=== PATIENT | female | born 1970 | race Caucasian/White ===

== ENCOUNTER 2018-07-05 14:00 | Outpatient (CLI) | payer BC, OTHER ==
[~2018-07-05] VITALS: Ht 162.6 cm; Wt 59.0 kg
[~2018-07-05 14:00] MED LIST: ALPR1TAB2 PO; AMIT10TA6 PO; AMPH20TA2 PO; ESZO2TAB4 PO; HYDR1TAB86 PO; HYOS0.1216 PO; PHEN200T27 PO
[2018-07-05] MEDS ORDERED: PROG100C6 PO (16:33)
[2018-07-05] MEDS ORDERED: domperidone PO (16:33)
[2018-07-05] MEDS ORDERED: ALPR1TAB7 PO (16:33)
[2018-07-05] MEDS ORDERED: AMPH20CA5 PO (16:33)
[2018-07-05] MEDS ORDERED: PROM12.59 PO (16:33)
== END 2018-07-05 15:30 | disposition home or self-care (01) ==
LOC: PREOP 14:00
PROVIDERS: ATTEND Urology
DX: Z01.818 Encounter for other preprocedural examination (principal)

== ENCOUNTER 2018-07-09 10:42 | Day surgery (SDC) | payer BC, OTHER ==
[~2018-07-09] VITALS: Ht 162.6 cm; Wt 59.0 kg
[~2018-07-09 10:42] MED LIST changes: +ALPR1TAB7 PO; +AMPH20CA5 PO; +PROG100C6 PO; +PROM12.59 PO; +domperidone PO
--- OUTSIDE RECORDS SUMMARY | 2018-07-09 10:45 | XMS REPORT | Continuity of Care Document ---
Author Author [facility] Organization [facility] Address Unknown Phone Unavailable Allergies Active Description Code Type Severity Reaction Onset Reported/Identified Relationship to Patient Clinical Status Yes ciprofloxacin [id number] Drug Allergy Unknown N/A 08/29/2013 Medications There is no data. Problems Date Dx Coded Attending Type Code Diagnosis Diagnosed By 09/02/2013 CHRISTY ALCANTARA MD Ot 595.3 TRIGONITIS 09/02/2013 CHRISTY ALCANTARA MD Ot 598.9 URETHRAL STRICTURE NOS 07/04/2018 CHRISTY ALCANTARA MD Ot 573.8 LIVER DISORDERS NEC 07/04/2018 CHRISTY ALCANTARA MD Ot 599.0 URIN TRACT INFECTION NOS 07/04/2018 CHRISTY ALCANTARA MD Ot 599.0 URIN TRACT INFECTION NOS 07/04/2018 CHRISTY ALCANTARA MD Ot V72.84 EXAM PRE-OPERATIVE NOS 07/05/2018 CHRISTY ALCANTARA MD Ot Z01.818 ENCOUNTER FOR OTHER PREPROCEDURAL EXAMIN 07/05/2018 CHRISTY ALCANTARA MD Ot 573.8 LIVER DISORDERS NEC 07/05/2018 CHRISTY ALCANTARA MD Ot 599.0 URIN TRACT INFECTION NOS 07/05/2018 CHRISTY ALCANTARA MD Ot 599.0 URIN TRACT INFECTION NOS 07/05/2018 CHRISTY ALCANTARA MD Ot V72.84 EXAM PRE-OPERATIVE NOS 07/05/2018 CHRISTY ALCANTARA MD Ot Z01.818 ENCOUNTER FOR OTHER PREPROCEDURAL EXAMIN 07/05/2018 CHRISTY ALCANTARA MD, Ot Z01.818 ENCOUNTER FOR OTHER PREPROCEDURAL EXAMIN Procedures There is no data. Results There is no data. Encounters ACCT No. Visit Date/Time Discharge Status Pt. Type Provider Facility Loc./Unit Complaint [id number] 07/05/2018 14:00:00 07/05/2018 15:30:00 DIS Outpatient CHRISTY ALCANTARA MD [facility] PREOP CYSTO [id number] 09/02/2013 09:06:00 09/02/2013 11:36:00 DIS Outpatient CHRISTY ALCANTARA MD [facility] RECURRENT UTIS [id number] 08/29/2013 07:15:00 08/29/2013 23:59:59 CLS Outpatient CHRISTY ALCANTARA MD [facility] PREOP RECURRENT UTIS [id number] 08/28/2013 13:55:00 08/28/2013 23:59:59 CLS Outpatient CHRISTY ALCANTARA MD [facility] RAD RECURRENT UTI [id number] 07/09/2018 12:00:00 PEN Preadmit CHRISTY ALCANTARA MD [facility] UTI
[2018-07-09 10:53] VITALS: BP 112/77
[2018-07-09] MEDS ORDERED: LACTATED RINGERS 1,000 ML IV PRN (11:06)
[2018-07-09] MEDS ORDERED: cefTRIAXone FOR IV USE 1,000 MG in NS (IVPB) 50 ML IV ONE (11:15)
[2018-07-09] MEDS ORDERED: SCOPOLAMINE 1.5 MG (TRANSDERM-SCOP) PATCH TOP ONE (11:15)
[2018-07-09] MEDS ORDERED: ONDANSETRON 4 MG/2 ML (SDV) Z0FRAN IV ONE (11:15)
[2018-07-09] MEDS ORDERED: FAMOTIDINE 20MG/2ML IV (PEPCID) IV ONE (11:15)
[2018-07-09] MEDS ORDERED: DEXAMETHASONE 10 MG/ML (DECADRON) 1 ML VIAL ONE (11:18)
[2018-07-09] MEDS ORDERED: MIDAZOLAM 2 MG/2 ML (VERSED) VIAL ONE (11:18)
[2018-07-09] MEDS ORDERED: LIDOCAINE PF 2% 5 ML (XYLOCAINE) VIAL ONE (11:18)
[2018-07-09] MEDS ORDERED: proPOfol 200 MG/20 ML (DIPRIVAN) VIAL IV ONE (11:18)
[2018-07-09] MEDS ORDERED: fentaNYL INJECTION 100 MCG/2 ML AMP ONE (11:18)
[2018-07-09] MEDS ORDERED: SEVOFLURANE (ULTANE) 15 ML INHAL SOLN ONE (11:18)
[2018-07-09] MEDS ORDERED: ONDANSETRON 4 MG/2 ML (SDV) Z0FRAN ONE (11:18)
--- NOTE | 2018-07-09 11:27 | Progress Note-Pre Operative ---
Pre-Operative Progress Note H&P Reviewed The H&P was reviewed, patient examined and no changes noted. Date Seen by Provider: Jul 09, 2018 Time Seen by Provider: 11: Date H&P Reviewed: Jul 09, 2018 Time H&P Reviewed: : Pre-Operative Diagnosis: H/O UTIS, DUS, AND CYSTITIS CHRISTY ALCANTARA MD Jul 09, 2018 11:27
--- NOTE | 2018-07-09 11:28 | Progress Note-Post Operative ---
Post-Operative Progess Note Surgeon (s)/Washer And Crusher Tender (s) Surgeon CHRISTY ALCANTARA MD Washer And Crusher Tender: NONE Pre-Operative Diagnosis H/O UTIS, DUS, AND CYSTITIS Post-Operative Diagnosis SAME Procedure & Operative Findings Date of Procedure 07/09/18 Procedure Performed/Findings CYSTOSCOPY, U.D, AND HYDRODISTENTION BLADDER Anesthesia Type GENERAL Estimated Blood Loss Estimated blood loss (mL): NONE Specimens/Packing Specimens Removed NONE Packing: NONE CHRISTY ALCANTARA MD Jul 09, 2018 11:28
--- NOTE | 2018-07-09 11:30 | Discharge Inst-Urology ---
Discharge Inst-Urology Discharge Medications New, Converted, or Re-newed RX: RX on Chart Patient Instructions/Follow Up Plan Please make appointment to been seen in office in 4 weeks. Increase oral fluids for 48 hours and then as needed. Diet and Activity as tolerated. If questions or concerns contact your physician Or seek help at emergency department. CHRISTY ALCANTARA MD Jul 09, 2018 11:30
[2018-07-09] MEDS ORDERED: morphine INJ 10 MG/ML 1ML (SYR OR VIAL) IVP ONE (12:30)
[2018-07-09] MEDS ORDERED: fentaNYL INJECTION 100 MCG/2 ML AMP IVP ONE (12:30)
[2018-07-09] MEDS ORDERED: ONDANSETRON 4 MG/2 ML (SDV) Z0FRAN IVP PRN (12:30)
[2018-07-09 13:10] VITALS: BP 103/63
[2018-07-09] MEDS ORDERED: NITR-65 PO (13:42)
[2018-07-09] MEDS ORDERED: HYOS0.1281 PO (13:42)
[2018-07-09] MEDS ORDERED: PHEN-640 PO (13:42)
[2018-07-09 13:45] VITALS: BP 110/68
[2018-07-09] MEDS ORDERED: PHENAZOPYRIDINE 100 MG (PYRIDIUM) TABLET ONE (13:50)
[2018-07-09] MEDS ORDERED: HYOSCYAMINE 0.125 MG (LEVSIN) TAB PO ONE (14:00)
[2018-07-09] MEDS ORDERED: PHENAZOPYRIDINE 100 MG (PYRIDIUM) TABLET PO ONE (14:00)
[2018-07-09 14:15] VITALS: BP 107/66
[2018-07-09 14:18] VITALS: BP 107/66
--- NOTE | 2018-07-09 14:30 | Anesthesia-General Post-Op ---
General Patient Condition Mental Status/LOC: Same as Preop Cardiovascular: Satisfactory Nausea/Vomiting: Absent Respiratory: Satisfactory Pain: Controlled Complications: Absent Post Op Complications Complications None Follow Up Care/Instructions Patient Instructions None needed. Anesthesia/Patient Condition Patient Condition Patient is doing well, no complaints, stable vital signs, no apparent adverse anesthesia problems. No complications reported per nursing. AMINA JENKINS CRNA Jul 09, 2018 14:30
--- NOTE | 2018-07-09 20:00 | OPERATIVE REPORT ---
DATE OF SERVICE: 07/09/2018 PREOPERATIVE DIAGNOSES: History of urinary tract infection, history of distal urethral stenosis and cystourethritis. POSTOPERATIVE DIAGNOSES: History of urinary tract infection, history of distal urethral stenosis and cystourethritis. OPERATION PERFORMED: Cystoscopy, urethral dilatation and hydrodistention of the bladder. SURGEON: Eleazar Alcantara MD. ANESTHESIA: General. COMPLICATIONS: None. DESCRIPTION OF PROCEDURE: Under satisfactory general anesthesia, the patient in lithotomy position, genitalia were prepped and draped in the usual sterile fashion. The urethra was dilated with [place] sound to #34 [place] easily. There was about 20 mL residual. Cystoscopy performed with both lenses and revealed very mild diffuse cystitis. No evidence of interstitial cystitis or carcinoma in situ. No foreign body, bladder tumor or stone visualized. Ureteric orifices normal with clear efflux. I went ahead and hydrodistended the bladder was 500 mL of fluid for 3 minutes drained the bladder. There was no bleeding. The patient tolerated the procedure and anesthesia well and was sent to recovery room in stable condition. Job ID: [id number] DocumentID: [id number] Dictated Date: 07/09/2018 12:18:48 Novelties Sales Representative Date: 07/09/2018 20:00:06 Dictated By: ELEAZAR ALCANTARA MD
== END 2018-07-09 14:18 | disposition home or self-care (01) ==
LOC: SDC 10:42
PROVIDERS: ATTEND Urology
DX: N35.92 Unspecified urethral stricture, female (principal); N34.2 Other urethritis; Z87.440 Personal history of urinary (tract) infections; Z11.2 Encounter for screening for other bacterial diseases; F90.9 Attention-deficit hyperactivity disorder, unspecified type; I47.1 Supraventricular tachycardia; K31.84 Gastroparesis; K21.9 Gastro-esophageal reflux disease without esophagitis; Z79.899 Other long term (current) drug therapy; Z88.1 Allergy status to other antibiotic agents
CPT/HCPCS: 87081